=== PATIENT | female | born 1965 | race Caucasian/White ===

== ENCOUNTER → 2018-03-12 | Outpatient (CLI) | payer BC ==
[~2018-03-12] MED LIST: BUPR150ER PO; CYAN500 PO; DIPH50 PO; ERYT250; Estradiol1 MG PO; GLUCOSAMINE-CH1 EA18 PO; LEVSOD125 PO; LEVSOD137 PO; Melatonin5 M1 PO; Mirena1 EACH VG; Multiple Vitam1 EAC1 PO; NAPR220 PO; SERT100 PO; VITAMIN D32000 UNI1 PO; ZOLP5 PO
== END | disposition home or self-care (01) ==
LOC: LAB SHORT 17:14 → OLS 17:14
PROVIDERS: Nurse Practitioner Women's Health
DX: Z12.4 Encounter for screening for malignant neoplasm of cervix (principal); Z91.89 Other specified personal risk factors, not elsewhere classified
CPT/HCPCS: 87624; G0123